=== PATIENT | female | born 1995 | race Caucasian/White ===

== ENCOUNTER 2017-05-11 14:47 | Inpatient (IN) | payer OTHER ==
[2017-05-11] MEDS ORDERED: DEXAMETHASONE 10 MG/ML VIAL IVP ONE (17:19)
[2017-05-11] MEDS ORDERED: KETOROLAC 30 MG/1 ML SDV IVP ONE (17:19)
[2017-05-11] MEDS ORDERED: METOCLOPRAMIDE 10 MG/2 ML VIAL IVP ONE ×2 (17:19→22:21)
[2017-05-11] MEDS ORDERED: NS 1,000 ML IV ONE ×2 (17:20→18:20)
--- NOTE | 2017-05-11 17:21 | EDPHY ---
H & P Smoking Status: Never smoked Time Seen by Provider: 05/11/17 17:08 HPI/ROS: CHIEF COMPLAINT: Headache HISTORY OF PRESENT ILLNESS: 21-year-old female presents to the emergency department with headache that began gradually yesterday. Patient states that the headache has been constant since yesterday. She feels nauseous although no vomiting. She is very photophobic and phonophobic. She has had some blurry vision as well as "spots" in her vision. She denies any focal neurologic findings. The patient was diagnosed with viral meningitis in July of 2016. She was seen in the emergency department for this. They apparently believe that it was related to herpes virus and she had zoster at that time. Patient has no rash now. No URI symptoms. No fevers or chills. She denies neck pain or stiffness. She does note that she had Implanon on in her arm that was recently removed few months ago and she is now on oral control pills. Last menstrual period was 2 weeks ago. She has had more frequent headaches since starting the control pill. REVIEW OF SYSTEMS: Constitutional: No fever, no chills. Eyes: Blurry vision. No double vision. ENT: No sore throat. Respiratory: No cough, no shortness of breath. Cardiac: No chest pain. Gastrointestinal: Nausea. No abdominal pain, vomiting or diarrhea. Genitourinary: No dysuria. Musculoskeletal: No neck or back pain. Skin: No rashes. Neurological: headache. (Jaqueline Cardona) Past Medical/Surgical History: Viral meningitis July of 2016, orthopedic surgery (Jaqueline Cardona) Social History: Single (Jaqueline Cardona) Physical Exam: General Appearance: Alert, no distress. Mentating normally and answering questions appropriately. Eyes: Pupils equal and round. Extraocular motions are all intact. ENT: Mouth: Mucous membranes moist. Respiratory: No wheezing, rhonchi, or rales, lungs are clear to auscultation. Cardiovascular: Regular rate and rhythm. Gastrointestinal: Abdomen is soft and nontender, no masses, no rebound or guarding, bowel sounds normal. Neurological: Alert and oriented x 3, cranial nerves II through XII grossly intact Skin: Warm and dry, no rashes. Musculoskeletal: Nontender to palpate along the cervical, thoracic or lumbar spine. Neck is supple. No nuchal rigidity. No pain with range of motion of her neck. Extremities: Full range of motion and no peripheral edema. Psychiatric: Patient is oriented X 3, there is no agitation. (Jaqueline Cardona) Constitutional: Initial Vital Signs Temperature (C) 36.8 C 05/11/17 15:05 Heart Rate 64 05/11/17 15:05 Respiratory Rate 18 05/11/17 15:05 Blood Pressure 113/58 L 05/11/17 15:05 O2 Sat (%) 98 05/11/17 15:05 O2 Delivery Mode Room Air O2 (L/minute) 2 Allergies/Adverse Reactions: oxycodone Adverse Reaction (Intermediate, Verified 05/11/17 15:08) Vomiting Home Medications: Medication Instructions Recorded Norgestimate-Ethinyl Estradiol 1 each PO 05/11/17 [Trinessa Lo Tablet] SUMAtriptan [Imitrex 25 MG (*)] 25 mg PO 05/11/17 Topimate 05/11/17 Medical Decision Making Procedures: Procedure lumbar puncture--patient is placed in the left lateral decubitus position. The L4-5 interspace was identified. Sterile prep is performed. Anesthesia is performed with 1% lidocaine that is applied in the LP kit. Needle is placed without difficulty and 6 mL of clear CSF are obtained bite over 4 tubes. Patient tolerates the procedure well. (Zen Aldridge) ED Course/Re-evaluation: Patient is evaluated by me at 8:20 p.m.. We discussed lumbar puncture risks and benefits as the patient has had previous viral meningitis. She continues to have headache despite conventional therapy. Her labs are reviewed by me and normal. She has had a previous lumbar puncture. They expressed understanding and agreement (Zen Aldridge) 21-year-old female presents to the emergency department complaining of headache. She has had migraine headaches in the past. She takes Topamax daily for this. She did try her Imitrex without relief. The patient will be given migraine cocktail including Decadron, Toradol, Reglan and Benadryl. We did discuss the possibility of this being related to viral meningitis. Feel that this is less likely. She has no neck pain or stiffness. She has no fever. No rash. No URI symptoms. The patient continued to have ongoing headache. She was complaining of more posterior headache neck pain. Family at bedside was also concerned about recurring meningitis. I discussed the pros and cons of performing lumbar puncture to exclude meningitis. Family understood. Lumbar puncture performed by Dr. Zen Aldridge. Lumbar puncture was clear. Patient continued to have ongoing pain. She has been monitored in the emergency department for several hours. I offered admission to the hospital for her ongoing headache and they agree. Patient will be admitted to Dr. Addis Morgan. I also spoke with Dr. Hickman who was on-call for [facility], who recommended CTA of the head and neck with venous phase. He also recommended migraine cocktail to be repeated every 6 hours or possibly adding Fioricet for breakthrough pain. (Jaqueline Cardona) Differential Diagnosis: Headache including but not limited to subarachnoid hemorrhage, migraine headache , tension headache and infectious causes such as meningitis, pharyngitis and sinusitis. (Jaqueline Cardona) - Data Points Laboratory Results: Laboratory Results 05/11/17 17:05 05/11/17 17:05 05/11/17 05/11/17 05/11/17 21:00 17:05 17:05 WBC RBC Hgb Hct MCV MCH MCHC RDW Plt Count MPV Neut % (Auto) Lymph % (Auto) Leon % (Auto) Eos % (Auto) Baso % (Auto) Nucleat RBC Rel Count Absolute Neuts (auto) Absolute Lymphs (auto) Absolute Monos (auto) Absolute Eos (auto) Absolute Basos (auto) Absolute Nucleated RBC Immature Gran % Immature Gran # Sodium 144 mEq/L mEq/L (134-144) Potassium 4.1 mEq/L mEq/L (3.5-5.2) Chloride 109 mEq/L mEq/L (97-110) Carbon Dioxide 22 mEq/l mEq/l (22-31) Anion Gap 13 mEq/L mEq/L (8-16) BUN 18 mg/dL mg/dL (7-23) Creatinine 1.0 mg/dL mg/dL (0.6-1.0) Estimated GFR > 60 Glucose 77 mg/dL mg/dL (70-100) Calcium 9.8 mg/dL mg/dL (8.5-10.4) Beta HCG, Qual NEGATIVE CSF Tube Number 4 CSF Appearance CLEAR (CLEAR) CSF Color COLORLESS (COLORLESS) CSF Supernatant COLORLESS (COLORLESS) CSF WBC 0 /mm3 /mm3 (0-5) CSF RBC 5 /mm3 H /mm3 (0-0) CSF Glucose 52 mg/dL mg/dL (50-75) CSF Total Protein 32 mg/dL mg/dL (12-60) 05/11/17 17:05 WBC 7.60 10^3/uL 10^3/uL (3.80-9.50) RBC 4.38 10^6/uL 10^6/uL (4.18-5.33) Hgb 14.1 g/dL g/dL (12.6-16.3) Hct 41.6 % % (38.0-47.0) MCV 95.0 fL fL (81.5-99.8) MCH 32.2 pg pg (27.9-34.1) MCHC 33.9 g/dL g/dL (32.4-36.7) RDW 12.2 % % (11.5-15.2) Plt Count 263 10^3/uL 10^3/uL (150-400) MPV 10.8 fL fL (8.7-11.7) Neut % (Auto) 52.0 % % (39.3-74.2) Lymph % (Auto) 35.0 % % (15.0-45.0) Leon % (Auto) 7.6 % % (4.5-13.0) Eos % (Auto) 4.6 % % (0.6-7.6) Baso % (Auto) 0.7 % % (0.3-1.7) Nucleat RBC Rel Count 0.0 % % (0.0-0.2) Absolute Neuts (auto) 3.95 10^3/uL 10^3/uL (1.70-6.50) Absolute Lymphs (auto) 2.66 10^3/uL 10^3/uL (1.00-3.00) Absolute Monos (auto) 0.58 10^3/uL 10^3/uL (0.30-0.80) Absolute Eos (auto) 0.35 10^3/uL 10^3/uL (0.03-0.40) Absolute Basos (auto) 0.05 10^3/uL 10^3/uL (0.02-0.10) Absolute Nucleated RBC 0.00 10^3/uL 10^3/uL (0-0.01) Immature Gran % 0.1 % % (0.0-1.1) Immature Gran # 0.01 10^3/uL 10^3/uL (0.00-0.10) Sodium Potassium Chloride Carbon Dioxide Anion Gap BUN Creatinine Estimated GFR Glucose Calcium Beta HCG, Qual CSF Tube Number CSF Appearance CSF Color CSF Supernatant CSF WBC CSF RBC CSF Glucose CSF Total Protein Microbiology Results: MICROBIOLOGY 05/11/17 21:00 Cerebral Spinal Fluid Gram Stain - Final Departure - Departure Disposition: [facility] Inpatient Acute Clinical Impression: Severe headache Condition: Good
[2017-05-11] MEDS ORDERED: KETOROLAC 30 MG/1 ML SDV ONE (17:27)
[2017-05-11] MEDS ORDERED: DEXAMETHASONE 10 MG/ML VIAL ONE (17:28)
[2017-05-11] MEDS ORDERED: METOCLOPRAMIDE 10 MG/2 ML VIAL ONE ×2 (17:28→22:23)
[2017-05-11] MEDS ORDERED: LORazepam 2 MG/ML INJ IVP ONE ×2 (19:04→19:11)
[2017-05-11] MEDS ORDERED: LORazepam 2 MG/ML INJ ONE (19:13)
[2017-05-11 19:18] LABS: % IMMATURE GRANULYOCYTES 0.1 % (0.0-1.1); ABSOLUTE IMMATURE GRANULOCYTES 0.01 10^3/uL (0.00-0.10); ADD DIFF? NO; ADD MORPH? NO; ADD SCAN? NO; ATYPICAL LYMPHOCYTE FLAG 40 (0-99); FRAGMENT RBC FLAG 0 (0-99); HEMATOCRIT 41.6 % (38.0-47.0); HEMOGLOBIN 14.1 g/dL (12.6-16.3); LEFT SHIFT FLG 20 (0-99); LIPEMIA HEMOLYSIS FLAG 90 (0-99); MEAN CELL HEMOGLOBIN 32.2 pg (27.9-34.1); MEAN CELL HEMOGLOBIN CONCENTR. 33.9 g/dL (32.4-36.7); MEAN PLATELET VOLUME 10.8 fL (8.7-11.7); PLATELET CLUMPS FLAG 20 (0-99); PLATELET COUNT 263 10^3/uL (150-400); RED BLOOD CELL COUNT 4.38 10^6/uL (4.18-5.33); RED CELL DISTRIBUTION WIDTH 12.2 % (11.5-15.2)
[2017-05-11 19:26] LABS: ANION GAP 13 mEq/L (8-16); CALCIUM 9.8 mg/dL (8.5-10.4); CARBON DIOXIDE 22 mEq/l (22-31); CHLORIDE 109 mEq/L (97-110); GLOMERULAR FILTRATION RATE > 60; GLUCOSE 77 mg/dL (70-100); POTASSIUM 4.1 mEq/L (3.5-5.2); SODIUM 144 mEq/L (134-144)
[2017-05-11] MEDS ORDERED: ONDANSETRON 4 MG/2 ML VIAL IVP ONE (20:18)
[2017-05-11] MEDS ORDERED: fentaNYL 100 MCG/2 ML INJ IVP ONE (20:18)
[2017-05-11] MEDS ORDERED: ONDANSETRON 4 MG/2 ML VIAL ONE (20:42)
[2017-05-11] MEDS ORDERED: fentaNYL 100 MCG/2 ML INJ ONE (20:42)
[2017-05-11 21:36] LABS: PROTEIN, CSF 32 mg/dL (12-60)
[2017-05-11 21:40] LABS: CSF APPEARANCE CLEAR (CLEAR); CSF COLOR COLORLESS (COLORLESS); CSF SUPERNATANT COLORLESS (COLORLESS); WBC, CSF 0 /mm3 (0-5)
[2017-05-11] MEDS ORDERED: HYDROmorphONE/DILAUDID 1 MG/ML SYR IVP ONE (22:32)
[2017-05-11] MEDS ORDERED: HYDROmorphONE/DILAUDID 1 MG/ML SYR ONE (22:34)
[2017-05-12] MEDS ORDERED: IOPAMIDOL (ISOVUE 370) 100 ML BTL IV ONE (00:50)
[2017-05-12] MEDS ORDERED: ONDANSETRON 4 MG/2 ML VIAL IVP PRN (01:53)
[2017-05-12] MEDS ORDERED: SUMAtriptan 50 MG TAB PO PRN (02:10)
[2017-05-12] MEDS: KETOROLAC 30 MG/1 ML SDV IVP PRN ×4 (02:20→21:49)
[2017-05-12] MEDS: ACET/CAFFEINE/BUTA FIORICET 1 EACH TAB PO PRN ×4 (02:20→21:49)
[2017-05-12] MEDS: NS 1,000 ML IV SCH ×2 (02:21→16:00)
--- NOTE | 2017-05-12 03:03 | GHP ---
[f rep st] HISTORY AND PHYSICAL DATE OF ADMISSION: 05/12/2017 CHIEF COMPLAINT: Headache. HISTORY: The patient is a 21-year-old female who had varicella meningitis in July 2016. She has a history of migraine headaches as a child, and they had gone away until she suffered this viral meningitis, and since then, she has had recurrence of migraines. This migraine, however, is much worse than anything she has never had previously. She started with headache onset yesterday morning, and it began gradually and escalated, constant, with nausea, photophobia, blurry vision, and seeing spots. It became excruciating pain, so she called Dr. Martinez, her neurologist, who directed her to the emergency room. PAST MEDICAL HISTORY: 1. Varicella meningitis, July 2016. 2. Migraine headaches. PAST SURGICAL HISTORY: Shoulder surgery. MEDICATIONS: Please see computer record for full detailed list. ALLERGIES: Oxycodone. SOCIAL HISTORY: No smoking. Rare alcohol. 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 She lives with 2 roommates. Her dad lives in [place] and is at bedside. REVIEW OF SYSTEMS: Complete review of systems obtained. Review of systems is negative regarding constitutional, HEENT, GI, pulmonary, cardiovascular, , hematology, skin, musculoskeletal, endocrine, psych, except for positives and negatives as in HPI. FAMILY HISTORY: Her brother has visual migraines. PHYSICAL EXAMINATION: GENERAL: Well-developed, well-nourished female, in no acute distress. VITAL SIGNS: Temperature is 36.8, pulse 67, blood pressure 108 /57, satting 96% on room air. EYES: Normal conjunctivae. Pupils equal and react to light. ENT: Normal ears and nose. Hearing intact. Normal teeth. Oropharynx moist. NECK: Trachea midline. No thyromegaly. CHEST: Normal effort. LUNGS: Clear to auscultation bilaterally. CARDIOVASCULAR: Regular rhythm. No murmur. No lower extremity edema. ABDOMEN: Soft, nontender. No hepatosplenomegaly. SKIN: Warm, dry, intact, without rash. MUSCULOSKELETAL: No cyanosis or clubbing. Strength 5/5 in upper and lower extremities. NEURO: Cranial nerves intact. Normal sensation to light touch. She does have some leftward beat nystagmus. PSYCH: Alert and oriented x3. Normal mood and affect. Normal judgment and insight. Normal memory. LABORATORY DATA: White count 7.6, hematocrit 41.6, platelets 263. Sodium 144, potassium 4.1, chloride 109, bicarb 22, BUN 18, creatinine 1.0, glucose 77. test is negative. Lumbar puncture is no white cells, 5 red cells. MEDICAL RECORDS REVIEW: She was hospitalized here July 2016 and diagnosed with varicella meningitis. She was discharged on acyclovir. ASSESSMENT/PLAN: Migraine headache. Lumbar puncture is negative for recurrence of meningitis. CT angiogram of the head and neck is performed in the emergency room. Result is pending. I do suspect severe migraine headache is the cause. She will be treated supportively. Will continue Toradol, antinausea medicines, and p.r.n. Imitrex. Will try to avoid IV narcotics if possible. Will consult Dr. Martinez's service to see her in the morning. CODE STATUS: Full. ADMISSION STATUS: Will admit to observation. DEEP VEIN THROMBOSIS PROPHYLAXIS: She is low risk. /[id number]/MODL MTDD
--- NOTE | 2017-05-12 08:33 | GCON ---
[f rep st] CONSULTATION NEUROLOGIC CONSULTATION HISTORY: The patient is a 21-year-old woman who I am asked to see in neurologic consultation from Garry Morgan, who is the admitting hospitalist. She is admitted because of intractable headach e. Apparently this has been going on significantly since viral meningitis in July last year an d she said she has had a daily headache ever since then, that ranges from 3 up to 7/10 and then once a week she will develop a more full-blown migraine. Prior to that she also has a history of episod ic migraines once or twice a week, often with visual aura. She came to the hospital because this he adache was staying very intense and associated with light and sound sensitivity and some neck pain. She was not having focal numbness or weakness. It started gradually on the morning of admission an d kept getting worse with some constant pain and some of the visual disturbance. She had spoken to Dr. Martinez and was advised to go to the emergency department. Since admission, she had a lumbar puncture as well as CT angiogram and CT angiogram results are pend ing but lumbar puncture is normal, with no evidence of meningitis. She has an allergy to oxycodone. PAST MEDICAL HISTORY: Shoulder surgery. SOCIAL HISTORY: She does not smoke. She is an undergraduate student. Rare consumption of any alco hol. FAMILY HISTORY: Brother having some visual migraines apparently. Currently she is rating her headache as being about 5/10 and much better than when she came in, and she has had a variety of medications administered. MEDICATIONS: Prior to admission included Topamax and sumatriptan and she takes oral control. Since coming in, she has Imitrex available as needed, Phenergan, Zofran, Toradol, Fioricet and did r eceive some Toradol as well. PHYSICAL EXAMINATION: VITAL SIGNS: Blood pressure is 112/60, pulse of 73, respirations 16, tempera ture 36.6. NEUROLOGIC: Pupils are 3 mm and reactive. Extraocular movements are intact. Normal fa cial sensation and strength. Motor exam: Normal muscle bulk and tone, 5/5 strength. Sensation is preserved for temperature and light touch. Reflexes are 1+. DIAGNOSTIC STUDIES: As mentioned CT angiogram of head and neck and have been performed but those tr anscribed results are not yet in the computer. IMPRESSION: The patient has a history of viral meningitis but no evidence of viral meningitis on th e recurrent lumbar puncture. She probably has a severe migraine which is now responding to treatmen ts with hydration and anti-inflammatories and some pain relievers. I explained to the patient that everything seems to be consistent with migraine. Her father is also in the room we discussed all of this. I told her that she can stay in the hospital until the headache seems to be back to her base line and then be discharged and apparently has an appointment to follow up with Dr. Martinez next for further management strategies for the headache. /[id number]/MODL
[2017-05-12] MEDS ORDERED: SUMAtriptan 25 MG TAB PO PRN (10:19)
--- NOTE | 2017-05-12 10:24 | HOSPPROG ---
Hospitalist Progress Note Assessment/Plan: Patient is a 21-year-old woman was admitted for intractable headache. The headache was noted to be intense and associated with light and sound sensitivity with associated neck pain. She has a history of viral meningitis in July last year has had significant headache since then. She had an LP performed which is negative for recurrence of meningitis. Today is my 1st encounter with the patient. Chart reviewed. * severe migraine Yamileth said it's ongoing/ able to eat, but not feeling quite well enough for dc during my evaluation * history of viral meningitis Her fluid studies on this admission did not indicate this *Plan: will check on her later today to see if she can go home Subjective: Yamileth is c/o ongoing headache Objective: Vital Signs Temp Pulse Resp BP Pulse Ox 36.6 C 73 16 112/60 96 05/12/17 07:58 05/12/17 07:58 05/12/17 07:58 05/12/17 07:58 05/12/17 07:58 05/11/17 05/12/17 05/13/17 05:59 05:59 05:59 Intake Total 1999 Balance 1999 - Physical Exam Constitutional: uncomfortable Eyes: PERRL Ears, Nose, Mouth, Throat: hearing normal Cardiovascular: regular rate and rhythym Respiratory: no respiratory distress Gastrointestinal: normoactive bowel sounds Skin: warm Musculoskeletal: full muscle strength Neurologic: AAOx3 Psychiatric: interacting appropriately ICD10 Worksheet Patient Problems: Problems Problem Status Onset Severe headache Acute Shingles Acute Viral meningitis Acute
[2017-05-12] MEDS: ACETAMINOPHEN 325 MG TAB PO PRN (14:26)
[2017-05-12] MEDS: PROMETHAZINE HCL 25 MG/ML INJ IVP PRN ×2 (14:26→22:11)
[2017-05-12] MEDS ORDERED: SUMAtriptan 6 MG/0.5 ML VIAL SC ONE ×2 (16:48→19:00)
[2017-05-12] MEDS: methylPREDNISolone SOD SUCC 1 GM in D5W 100 ML IV SCH (17:30)
[2017-05-12] MEDS: NORGESTIMATE ETHINYL ESTRADIOL PO SCH (20:38)
[2017-05-12] MEDS: TOPIRAMATE 25 MG TAB PO SCH (20:40)
[2017-05-13] MEDS: NS 1,000 ML IV SCH (03:23)
[2017-05-13] MEDS: KETOROLAC 30 MG/1 ML SDV IVP PRN ×3 (05:45→20:04)
[2017-05-13] MEDS: ACET/CAFFEINE/BUTA FIORICET 1 EACH TAB PO PRN ×3 (05:46→21:44)
[2017-05-13] MEDS: ACETAMINOPHEN 325 MG TAB PO PRN (08:28)
[2017-05-13] MEDS: methylPREDNISolone SOD SUCC 1 GM in D5W 100 ML IV SCH (08:29)
[2017-05-13] MEDS ORDERED: LORazepam 1 MG TAB PO ONE (08:36)
--- NOTE | 2017-05-13 08:41 | NEUROPROG ---
Assessment: The patient continues to have rather intractable headache with some fluctuations consistent with status migrainosus. We have ruled out interest cerebral pathology as well as meningitis, but she has a long history of chronic daily headache after her viral meningitis with episodic migraine. I explained that she still will improve with more time we will continue the current treatment strategies until she feels more comfortable in order to be managed at home. I will add a dose of lorazepam 1 mg p.o. today to see if that helps. Otherwise, if she stays in the hospital overnight again, my partner will follow up tomorrow and she has an appointment with Dr. Martinez next week as well. Subjective: The patient says that she has ongoing headache and became severe last night with probable panic attack as well as experiencing light sensitivity and increasing back pain in the area where she had her lumbar puncture. She says she can' t stand up completely straight because it hurts in her lower back. Headache ranges from 5 to a 8 or 9/10. She is describing only temporary relief with some of the medications. The sumatriptan was not very effective. We have started some steroids without clear benefit yet. Objective: Vital Signs Temp Pulse Resp BP Pulse Ox 37.1 C 60 16 132/71 H 94 05/12/17 20:51 05/12/17 20:51 05/12/17 20:51 05/12/17 20:51 05/12/17 20:51 05/12/17 05/13/17 05/14/17 05:59 05:59 05:59 Intake Total 1999 2400 Balance 1999 2400 She is awake and alert but appears a little bit uncomfortable sitting in a darkened room. Her cognition is normal. Allergies/Adverse Reactions: oxycodone Allergy (Intermediate, Verified 05/12/17 00:40) Vomiting
--- NOTE | 2017-05-13 09:37 | HOSPPROG ---
Hospitalist Progress Note Assessment/Plan: Patient is a 21-year-old woman was admitted for intractable headache. The headache was noted to be intense and associated with light and sound sensitivity with associated neck pain. She has a history of viral meningitis in July last year has had significant headache since then. She had an LP performed which is negative for recurrence of meningitis. Reviewed her care with Dr. Chavez. * severe migraine Yamileth said it's ongoing/ able to eat, but not feeling quite well enough for dc during my evaluation Will ask for the alternative care team to further evaluate * history of viral meningitis Her fluid studies on this admission did not indicate this *Plan: will check on her later today to see if she can go home Subjective: Yamileth is having ongoing headache, feels no improvement. Objective: Vital Signs Temp Pulse Resp BP Pulse Ox 36.5 C 59 L 20 110/64 96 05/13/17 09:04 05/13/17 09:04 05/13/17 09:04 05/13/17 09:04 05/13/17 09:04 05/12/17 05/13/17 05/14/17 05:59 05:59 05:59 Intake Total 1999 2400 Balance 1999 2400 - Physical Exam Constitutional: uncomfortable, No not in pain Eyes: PERRL Ears, Nose, Mouth, Throat: hearing normal Cardiovascular: regular rate and rhythym Respiratory: no respiratory distress Gastrointestinal: normoactive bowel sounds Skin: warm Musculoskeletal: full muscle strength Neurologic: AAOx3 Psychiatric: interacting appropriately, flat affect ICD10 Worksheet Patient Problems: Problems Problem Status Onset Severe headache Acute Shingles Acute Viral meningitis Acute
[2017-05-13] MEDS: METHOCARBAMOL 750 MG TAB PO PRN ×2 (11:35→15:51)
[2017-05-13] MEDS ORDERED: D5W IV ONE (14:56)
[2017-05-13] MEDS ORDERED: VALPROATE SODIUM IV ONE (14:56)
[2017-05-13] MEDS ORDERED: HYDROmorphONE/DILAUDID 1 MG/ML SYR IVP ONE (15:11)
[2017-05-13] MEDS: PROMETHAZINE HCL 25 MG/ML INJ IVP PRN (20:10)
[2017-05-13] MEDS ORDERED: TEMAZEPAM 15 MG CAP PO PRN (20:15)
[2017-05-13] MEDS: NORGESTIMATE ETHINYL ESTRADIOL PO SCH (20:18)
[2017-05-13] MEDS: TOPIRAMATE 25 MG TAB PO SCH (20:18)
[2017-05-13] MEDS ORDERED: NORGESTIMATE ETHINYL ESTRADIOL PO SCH (21:00)
[2017-05-13 22:45] VITALS: O2SAT 96
[2017-05-14] MEDS: METHOCARBAMOL 750 MG TAB PO PRN (06:27)
[2017-05-14] MEDS: ACET/CAFFEINE/BUTA FIORICET 1 EACH TAB PO PRN (06:29)
--- NOTE | 2017-05-14 08:46 | HOSPPROG ---
Hospitalist Progress Note Assessment/Plan: Patient is a 21-year-old woman was admitted for intractable headache. The headache was noted to be intense and associated with light and sound sensitivity with associated neck pain. She has a history of viral meningitis in July last year has had significant headache since then. She had an LP performed which is negative for recurrence of meningitis. Reviewed her care with Dr. Vedruzco. * severe migraine steroids, topamax, toradol,etc have had little improvement has an appt with Dr Martinez on *hx of viral meningitis fluid studies are stable *back pain patient said pain was intense yesterday able to ambulate back xrays show nothing acute *anxiety asked for alternative care team and Manisha Whitt to see she is scared about reoccurrence of viral meningitis *Plan: DC today/ Dr Verduzco wrote script for Gabapentin 300 mg Qhs to see if this helps with the headache pain, the therapies provided in the hospital have not been very helpful. Prior to dc, will ask Manisha Whitt RN to see her to give the patient and her family resources. Subjective: Yamileth is tearful/ says her headache has not improved. Objective: Vital Signs Temp Pulse Resp BP Pulse Ox 37.0 C 71 15 110/58 L 96 05/14/17 07:52 05/14/17 07:52 05/14/17 07:52 05/14/17 07:52 05/14/17 07:52 - Physical Exam Constitutional: uncomfortable, No not in pain Ears, Nose, Mouth, Throat: hearing normal Respiratory: no respiratory distress Skin: warm Neurologic: AAOx3 Psychiatric: other (tearful) ICD10 Worksheet Patient Problems: Problems Problem Status Onset Severe headache Acute Shingles Acute Viral meningitis Acute
[2017-05-14] MEDS: methylPREDNISolone SOD SUCC 1 GM in D5W 100 ML IV SCH (08:56)
[2017-05-14] MEDS ORDERED: ONDANSETRON DISINTEGRATING 4 MG TAB PO PRN (09:40)
--- NOTE | 2017-05-14 09:55 | NEUROPROG ---
Assessment: 1. Acute on chronic headaches 35 total minutes floor time; over 50% counseling regarding the patient's acute on chronic headaches. I have reviewed multiple classes of medications used for status migrainosus including steroids, Depakote, Phenergan, sumatriptan She also has a significant degree of anxiety underlying her headaches. Discussed at great length. Overall evaluation has been negative. No evidence of recurrent meningitis on LP Neuro imaging does not show any significant abnormality Recommendations: 1. Discharge home on gabapentin 300 mg at bedtime. Potential risks, benefits and alternatives of this medication discussed with the patient and family. 2. Follow-up with Dr. Martinez on Sunday 3. She likely will need outpatient psychiatry and/or psychological therapy as well. We will sign off and follow up as needed. Thank you for this consultation Subjective: Continued headache Objective: Vital Signs Temp Pulse Resp BP Pulse Ox 37.0 C 71 15 110/58 L 96 05/14/17 07:52 05/14/17 07:52 05/14/17 07:52 05/14/17 07:52 05/14/17 07:52 Awake and alert No aphasia No convulsive activity Allergies/Adverse Reactions: oxycodone Allergy (Intermediate, Verified 05/12/17 00:40) Vomiting
[2017-05-14 16:05] VITALS: BP 110/62; PULSE 60; RESP 14; TEMP 98.8
--- NOTE | 2017-05-14 19:29 | GDS ---
[f rep st] DISCHARGE SUMMARY DISCHARGE DIAGNOSES: 1. Migraine headache. 2. History of viral meningitis. 3. Back pain. 4. Anxiety. CONSULTATIONS: 1. Dr. Quintin Chavez. 2. Manisha Whitt, registered nurse with [facility]. HISTORY: The patient is a 21-year-old female, who had varicella meningitis in July 2016. She has a history of migraine headaches as a child, and they went away until she suffered this episode of viral meningitis. Since then, she has been having recurring migraines, and sees Dr. Martinez in the outpatient setting. She started with a headache prior to admission that began gradually and escalated, causing nausea, photophobia, blurry vision. It became excruciating. She came to the ER for further evaluation. During her stay a head and neck CTA was performed, which showed no significant stenosis or dissection of either carotid or vertebral artery. She had a negative CT angiogram of the brain. She has incidental subcentimeter nodules in both thyroid lobes. She should get followup in a year. She was seen and evaluated by myself and Dr. Verduzco today. Her headaches have continued. We have tried steroids, Depakote, Phenergan and sumatriptan without much relief. She has significant anxiety. She will be seen by Manisha Whitt, and get further follow up with Dr. Martinez. HOSPITAL COURSE: 1. Migraines. She has not had much relief from the various treatments tried for her migraine. At this point, will hold off any other treatment. Dr. Verduzco has given her a prescription to take gabapentin 300 mg p.o. at bedtime to see if this helps her with sleep and with the pain. She has an appointment with Dr. Martinez on Sunday. 2. History of viral meningitis. An LP was performed here. Her fluids studies are stable. 3. Back pain. She was able to ambulate, but needed to use a walker yesterday. Back x-rays were performed, which showed nothing acute. 4. Anxiety. She will see our alternative care team, as well as Manisha Whitt prior to discharge. PENDING LABS AND TESTS: None. CONDITION AT DISCHARGE: Stable. Blood pressure is 110/58, O2 sats on room air 96%, pulse is 71, temperature is 37 degree Celsius, respiratory rate is 15. DISCHARGE INSTRUCTIONS: 1. Get followup in regard to her thyroid nodules within the next year. 2. Stop all of her medications for her migraine, and try gabapentin tonight to see if this helps. 3. If she develops fever, chills, chest pain, or shortness of breath, return to the ER. 4. The patient and her parents have been given resources to help with her anxiety. Greater than 40 minutes discharging coordinating her care. /[id number]/MODL MTDD
== END 2017-05-14 18:14 | disposition home or self-care (01) | DRG 103 ==
LOC: F3N 05-12 01:30 → OBSVTOIN 05-13 16:00
PROVIDERS: ADMIT Internal Medicine; ATTEND Internal Medicine
PROC: 009U3ZX Drainage of Spinal Canal, Percutaneous Approach, Diagnostic (ICD-10-PCS; principal; 2017-05-13)
DX: G43.909 Migraine, unspecified, not intractable, without status migrainosus (principal); F41.9 Anxiety disorder, unspecified; Z86.61 Personal history of infections of the central nervous system
CPT/HCPCS: 96374; G0378; J1100; J1170; J1200; J1885; J2060; J2405; J2550; J2765; J2930; J3010; J3030; Q9967